=== PATIENT | male | born 1945 | race Caucasian/White ===

== ENCOUNTER 2020-01-06 22:19 | Inpatient (IN) | payer MEDICARE, OTHER ==
[~2020-01-06] VITALS: Ht 177.8 cm; Wt 108.7 kg
--- NOTE | 2020-01-06 22:27 | NUR ---
EKG DONE ON ARRIVAL BY ME.
--- NOTE | 2020-01-06 22:27 | NUR ---
Saúl blandon in [facility] - 01/06/20 at 2227 by [email or web address] EKG DONE ON ARRIVAL BY
[2020-01-06] MEDS ORDERED: HEPARIN 25,000 UNITS/250ML PMX 250 ML ONE (22:56)
[2020-01-06] MEDS ORDERED: HEPARIN 25,000 UNITS/250ML PMX 250 ML IV PRN (23:00)
[2020-01-06 23:18] LABS: TROPONIN I 0.246 ng/mL (0.000-0.045)
[2020-01-06] MEDS ORDERED: TEMAZEPAM 15 MG CAPSULE PO PRN (23:30)
[2020-01-06] MEDS ORDERED: DOCUSATE 100 MG CAPSULE PO PRN (23:30)
[2020-01-06] MEDS ORDERED: morphine SULFATE 10 MG/ML, 1ML IVPush PRN (23:30)
[2020-01-06] MEDS ORDERED: ENALAPRILAT 1.25 MG/ML, 2ML IVPush PRN (23:30)
[2020-01-06] MEDS ORDERED: NITROGLYCERIN 0.4 MG BOTTLE (25 TABS) SL PRN (23:30)
[2020-01-06] MEDS ORDERED: ACETAMINOPHEN 325 MG TABLET PO PRN (23:30)
[2020-01-06] MEDS ORDERED: LIDODERM 5% PATCH TD PRN (23:30)
[2020-01-06] MEDS ORDERED: PLEASE ENTER ALLERGIES MC SCH (23:45)
[2020-01-06 23:46] VITALS: BP 148/82
[2020-01-07] MEDS ORDERED: CYCL-259 PO (00:01)
[2020-01-07] MEDS ORDERED: CHOL10003 PO (00:01)
[2020-01-07] MEDS ORDERED: albuterol (00:01)
[2020-01-07] MEDS ORDERED: OMEP-110 PO (00:01)
[2020-01-07] MEDS ORDERED: FURO20TA3 PO (00:01)
[2020-01-07] MEDS ORDERED: LISI40TA PO (00:01)
[2020-01-07] MEDS ORDERED: MOME220A9 IH (00:01)
[2020-01-07] MEDS ORDERED: vitamin B12 (00:01)
[2020-01-07] MEDS ORDERED: DOXA4TAB3 PO (00:01)
[2020-01-07] MEDS ORDERED: ATOR-2 PO (00:01)
[2020-01-07] MEDS ORDERED: HEPARIN 5,000 UNITS/ML, 1ML IV PRN (00:30)
[2020-01-07 02:03] VITALS: BP 148/82
[2020-01-07 05:36] LABS: BASOPHILS # (AUTO) 0.02 x10^3/uL (0-0.1); BASOPHILS % (AUTO) 0 % (0-1); EOSINOPHILS # (AUTO) 0.06 x10^3/uL (0-0.4); EOSINOPHILS % (AUTO) 1 % (1-7); LYMPHOCYTES # (AUTO) 1.47 x10^3/uL (1-3.4); LYMPHOCYTES % (AUTO) 24 % (22-44); MD NO; MEAN CORPUSCULAR HEMOGLOBIN 29.7 pg (27.5-34.5); MEAN CORPUSCULAR HGB CONC 33.2 g/dL (33.2-36.2); MEAN CORPUSCULAR VOLUME 89.5 fL (81-97); MEAN PLATELET VOLUME 7.6 fL (7.4-10.4); MONOCYTES # (AUTO) 0.48 x10^3/uL (0.2-0.8); MONOCYTES % (AUTO) 8 % (2-9); NEUTROPHILS # (AUTO) 4.04 x10^3/uL (1.8-6.8); NEUTROPHILS % (AUTO) 67 % (42-75); PLATELET COUNT 207 x10^3/uL (130-400); RED BLOOD COUNT 4.17 x10^6/uL (4.38-5.82); RED CELL DISTRIBUTION WIDTH 14.5 % (9.4-14.8)
[2020-01-07 05:49] LABS: CHOL/HDL RATIO 3.3; CHOLESTEROL, TOTAL 106 mg/dL (140-239); HDL CHOL % 30 % (26-37); HDL CHOLESTEROL (DIRECT) 32 mg/dL (40-60); LDL CHOLESTEROL,CALCULATED 53 mg/dL (54-169); LDL/HDL RATIO 1.7 (0.5-3.0); TRIGLYCERIDES 103 mg/dL (50-200); VLDL CHOLESTEROL 21 mg/dL (0-25)
[2020-01-07] MEDS ORDERED: ASPIRIN 81 MG TABLET EC PO SCH (06:00)
[2020-01-07 07:15] VITALS: BP 124/81
[2020-01-07 07:49] LABS: TROPONIN I 0.859 ng/mL (0.000-0.045)
[2020-01-07 08:21] LABS: ANION GAP 8 mmol/L (5-15); CALCIUM 8.6 mg/dL (8.5-10.1); CHLORIDE 108 mmol/L (98-107); CREATININE 0.89 mg/dL (0.7-1.3)
[2020-01-07] MEDS ORDERED: MIDAZOLAM 1 MG/ML, 2ML ONE (10:13)
[2020-01-07] MEDS ORDERED: VERAPAMIL 2.5 MG/ML, 2ML ONE (10:14)
[2020-01-07] MEDS ORDERED: FENTANYL PF 100 MCG/2ML ONE (10:14)
[2020-01-07] MEDS ORDERED: BIVALIRUDIN 250 MG ONE ×3 (10:14→11:14)
[2020-01-07] MEDS ORDERED: LIDOCAINE-MPF 1%, 5ML ONE (10:15)
[2020-01-07] MEDS ORDERED: ASPIRIN 325 MG TABLET EC ONE (11:10)
[2020-01-07] MEDS ORDERED: TICAGRELOR 90 MG TABLET ONE (11:10)
[2020-01-07] MEDS: SODIUM CHLORIDE 0.9% 1,000 ML IV SCH ×2 (11:46→19:48)
[2020-01-07 14:48] VITALS: BP 151/86
[2020-01-07 15:36] VITALS: BP 177/78
[2020-01-07] MEDS ORDERED: ENALAPRILAT 1.25 MG/ML, 1ML ONE (17:03)
[2020-01-07] MEDS: ONDANSETRON ODT 4 MG PO PRN ×2 (17:06→21:27)
[2020-01-07 17:09] VITALS: BP 168/83
[2020-01-07 20:15] VITALS: BP 163/88
[2020-01-07] MEDS: MOMETASONE FUROATE 200 MCG HOMEINH SCH (21:25)
[2020-01-07] MEDS: TICAGRELOR 90 MG TABLET PO SCH (21:26)
[2020-01-07] MEDS: ATORVASTATIN 80 MG TABLET PO SCH (21:27)
[2020-01-08 01:07] VITALS: BP 150/84
[2020-01-08] MEDS: SODIUM CHLORIDE 0.9% 1,000 ML IV SCH ×3 (01:07→20:27)
[2020-01-08 05:46] LABS: BASOPHILS # (AUTO) 0.02 x10^3/uL (0-0.1); BASOPHILS % (AUTO) 0 % (0-1); EOSINOPHILS # (AUTO) 0.01 x10^3/uL (0-0.4); EOSINOPHILS % (AUTO) 0 % (1-7); LYMPHOCYTES % (AUTO) 9 % (22-44); MD NO; MEAN CORPUSCULAR HEMOGLOBIN 29.9 pg (27.5-34.5); MEAN CORPUSCULAR HGB CONC 33.3 g/dL (33.2-36.2); MEAN CORPUSCULAR VOLUME 89.8 fL (81-97); MEAN PLATELET VOLUME 7.6 fL (7.4-10.4); MONOCYTES # (AUTO) 0.66 x10^3/uL (0.2-0.8); MONOCYTES % (AUTO) 7 % (2-9); NEUTROPHILS # (AUTO) 7.78 x10^3/uL (1.8-6.8); NEUTROPHILS % (AUTO) 84 % (42-75); PLATELET COUNT 207 x10^3/uL (130-400); RED BLOOD COUNT 4.31 x10^6/uL (4.38-5.82); RED CELL DISTRIBUTION WIDTH 14.8 % (9.4-14.8)
[2020-01-08 06:37] LABS: ANION GAP 9 mmol/L (5-15); CALCIUM 8.8 mg/dL (8.5-10.1); CHLORIDE 111 mmol/L (98-107); CREATININE 2.01 mg/dL (0.7-1.3)
[2020-01-08 06:49] VITALS: BP 170/89
[2020-01-08] MEDS ORDERED: SODIUM CHLORIDE 0.9% 1,000 ML IV SCH (08:30)
[2020-01-08] MEDS ORDERED: LISINOPRIL 40 MG TABLET PO SCH (09:00)
[2020-01-08] MEDS: MOMETASONE FUROATE 200 MCG HOMEINH SCH ×2 (10:05→20:28)
[2020-01-08] MEDS: OMEPRAZOLE 20 MG CAPSULE.DR PO SCH (10:08)
[2020-01-08] MEDS: TICAGRELOR 90 MG TABLET PO SCH ×2 (10:08→20:28)
[2020-01-08] MEDS: ASPIRIN 81 MG TABLET EC PO SCH (10:08)
[2020-01-08] MEDS: DOXAZOSIN 2MG TABLET PO SCH ×2 (10:09→20:28)
[2020-01-08] MEDS: METOPROLOL TARTRATE 25 MG TAB PO SCH ×2 (10:09→18:22)
[2020-01-08] MEDS ORDERED: ENALAPRILAT 1.25 MG/ML, 1ML ONE (11:06)
[2020-01-08 11:10] VITALS: BP 154/54
[2020-01-08] MEDS: ONDANSETRON ODT 4 MG PO PRN (11:11)
[2020-01-08 13:29] VITALS: BP 154/85
[2020-01-08 18:37] VITALS: BP 150/88
[2020-01-08] MEDS: ATORVASTATIN 80 MG TABLET PO SCH (20:28)
[2020-01-09 01:17] VITALS: BP 137/71
[2020-01-09] MEDS: SODIUM CHLORIDE 0.9% 1,000 ML IV SCH (04:30)
[2020-01-09 04:59] LABS: ANION GAP 5 mmol/L (5-15); CALCIUM 8.2 mg/dL (8.5-10.1); CHLORIDE 112 mmol/L (98-107); CREATININE 4.79 mg/dL (0.7-1.3)
[2020-01-09 05:27] VITALS: BP 158/70
[2020-01-09] MEDS: ASPIRIN 81 MG TABLET EC PO SCH (05:31)
[2020-01-09] MEDS: METOPROLOL TARTRATE 25 MG TAB PO SCH ×2 (05:31→18:11)
[2020-01-09] MEDS: OMEPRAZOLE 20 MG CAPSULE.DR PO SCH (05:31)
[2020-01-09] MEDS ORDERED: DOXA4TAB2 PO (06:51)
[2020-01-09 07:00] VITALS: BP 135/75
[2020-01-09] MEDS: MOMETASONE FUROATE 200 MCG HOMEINH SCH ×2 (08:00→21:00)
[2020-01-09] MEDS: TICAGRELOR 90 MG TABLET PO SCH ×2 (08:11→20:53)
[2020-01-09 13:30] VITALS: BP 137/77
[2020-01-09 18:10] VITALS: BP 189/89
[2020-01-09 18:47] VITALS: BP 160/80
[2020-01-09] MEDS: ATORVASTATIN 80 MG TABLET PO SCH (20:53)
[2020-01-09] MEDS: DOXAZOSIN 2MG TABLET PO SCH (20:54)
[2020-01-10 00:24] VITALS: BP 119/69
[2020-01-10 04:51] LABS: BASOPHILS # (AUTO) 0.03 x10^3/uL (0-0.1); BASOPHILS % (AUTO) 0 % (0-1); EOSINOPHILS # (AUTO) 0.31 x10^3/uL (0-0.4); EOSINOPHILS % (AUTO) 5 % (1-7); LYMPHOCYTES # (AUTO) 1.41 x10^3/uL (1-3.4); LYMPHOCYTES % (AUTO) 21 % (22-44); MD NO; MEAN CORPUSCULAR HEMOGLOBIN 29.5 pg (27.5-34.5); MEAN CORPUSCULAR HGB CONC 32.9 g/dL (33.2-36.2); MEAN CORPUSCULAR VOLUME 89.7 fL (81-97); MEAN PLATELET VOLUME 7.7 fL (7.4-10.4); MONOCYTES # (AUTO) 0.71 x10^3/uL (0.2-0.8); MONOCYTES % (AUTO) 10 % (2-9); NEUTROPHILS # (AUTO) 4.39 x10^3/uL (1.8-6.8); NEUTROPHILS % (AUTO) 64 % (42-75); PLATELET COUNT 189 x10^3/uL (130-400); RED BLOOD COUNT 3.86 x10^6/uL (4.38-5.82); RED CELL DISTRIBUTION WIDTH 15.1 % (9.4-14.8)
[2020-01-10 05:00] LABS: CHLORIDE 111 mmol/L (98-107)
[2020-01-10 05:06] LABS: ANION GAP 7 mmol/L (5-15); CALCIUM 8.5 mg/dL (8.5-10.1); CREATININE 1.41 mg/dL (0.7-1.3)
[2020-01-10 05:27] VITALS: BP 136/80
[2020-01-10] MEDS: METOPROLOL TARTRATE 25 MG TAB PO SCH (05:29)
[2020-01-10] MEDS: OMEPRAZOLE 20 MG CAPSULE.DR PO SCH (05:30)
[2020-01-10] MEDS: ASPIRIN 81 MG TABLET EC PO SCH (05:30)
[2020-01-10 06:55] VITALS: BP 130/62
[2020-01-10] MEDS: MOMETASONE FUROATE 200 MCG HOMEINH SCH (08:12)
[2020-01-10] MEDS: TICAGRELOR 90 MG TABLET PO SCH (08:12)
[2020-01-10] MEDS ORDERED: TICA90TA PO (10:04)
[2020-01-10] MEDS ORDERED: ASPI81TA45 PO (10:04)
[2020-01-10] MEDS ORDERED: NITR0.4T28 SL (10:04)
[2020-01-10] MEDS ORDERED: METO25TA35 PO (10:04)
== END 2020-01-10 14:40 | disposition home or self-care (01) | DRG 246 ==
LOC: ED 22:40 → EDIP 23:47 → 5SO 23:51
PROVIDERS: ADMIT Family Medicine; ATTEND Family Medicine
PROC: 027034Z Dilation of Coronary Artery, One Artery with Drug-eluting Intraluminal Device, Percutaneous Approach (ICD-10-PCS; principal; 2020-01-07)
PROC: 4A023N7 Measurement of Cardiac Sampling and Pressure, Left Heart, Percutaneous Approach (ICD-10-PCS; 2020-01-07)
PROC: B211YZZ Fluoroscopy of Multiple Coronary Arteries using Other Contrast (ICD-10-PCS; 2020-01-07)
PROC: B215YZZ Fluoroscopy of Left Heart using Other Contrast (ICD-10-PCS; 2020-01-07)
DX: I21.4 Non-ST elevation (NSTEMI) myocardial infarction (principal); N17.0 Acute kidney failure with tubular necrosis; N13.8 Other obstructive and reflux uropathy; Z88.6 Allergy status to analgesic agent; E78.5 Hyperlipidemia, unspecified; F12.20 Cannabis dependence, uncomplicated; I12.9 Hypertensive chronic kidney disease with stage 1 through stage 4 chronic kidney disease, or unspecified chronic kidney disease; I25.10 Atherosclerotic heart disease of native coronary artery without angina pectoris; J44.9 Chronic obstructive pulmonary disease, unspecified; K21.9 Gastro-esophageal reflux disease without esophagitis; N18.9 Chronic kidney disease, unspecified; N40.1 Benign prostatic hyperplasia with lower urinary tract symptoms; Z82.49 Family history of ischemic heart disease and other diseases of the circulatory system; Z87.891 Personal history of nicotine dependence; Z79.82 Long term (current) use of aspirin; Z79.899 Other long term (current) drug therapy
CPT/HCPCS: 36415; 71045; 76770; 80048; 80061; 83036; 84484; 85025; 85520; 93005; 93306; 93356; 93458; 96374; 99156; C1769; C1894; C9600; G0378; J0583; J1644; J2250; J3010; Q0162; C1725; C1874; C1887; J7030; Q9967

== ENCOUNTER 2020-05-01 14:19 | Inpatient (IN) | payer MEDICARE, MEDICAID ==
[~2020-05-01] VITALS: Ht 177.8 cm; Wt 104.7 kg
[~2020-05-01 14:19] MED LIST: ASPI81TA45 PO; ATOR-2 PO; CHOL10003 PO; CYCL-259 PO; DOXA4TAB2 PO; DOXA4TAB3 PO; FURO20TA3 PO; LISI40TA PO; METO25TA35 PO; MOME220A9 IH; NITR0.4T28 SL; OMEP-110 PO; TICA90TA PO; albuterol; vitamin B12
--- NOTE | 2020-05-01 14:30 | NUR ---
PT BIB [facility] FROM [facility] FOR NONSTEMI. PER EMS, PT C/O WEAKNESS, SOB ON EXERTION AND CONSTIPATION X2 DAYS AT HOME. PT WAS FOUND TO HAVE ELEVATED TROPONIN 2.4. PT WAS ALSO FOUND TO HAVE URINARY RETENTION (HAD INDWELLING CATHETER SINCE HIS CARDIAC STENT WAS PLACED IN JANUARY) AND SO ARGUETA CATH WAS INSERTED AGAIN. UPON ARRIVAL TO ED, PT A&OX4, REPORTS FEELING WEAK, DENIES CHEST PAIN. HEPARIN GTT INFUSING UPON ARRIVAL; HELD UNTIL ER ORDER IN PLACE. VSS. ALL MONITORS IN PLACE.
[2020-05-01] MEDS ORDERED: HEPARIN 25,000 UNITS/250ML PMX 250 ML ONE (14:56)
[2020-05-01] MEDS ORDERED: CEFTRIAXONE PMX 1GM/50ML 50 ML IV ONE (15:30)
[2020-05-01] MEDS ORDERED: CEFTRIAXONE PMX 1GM/50ML 50 ML ONE (15:50)
[2020-05-01] MEDS: HEPARIN 25,000 UNITS/250ML PMX 250 ML IV PRN (15:59)
[2020-05-01] MEDS ORDERED: HEPARIN 5,000 UNITS/ML, 1ML ONE (16:00)
[2020-05-01] MEDS ORDERED: HEPARIN 5,000 UNITS/ML, 1ML IV ONE (16:00)
--- NOTE | 2020-05-01 16:18 | NUR ---
HEPARIN GTT INFUSING PER ORDERS. 2ND IV STARTED AND ROCEPHIN INFUSING.
[2020-05-01] MEDS ORDERED: ALLO300T PO (17:01)
[2020-05-01] MEDS ORDERED: FINA5TAB4 PO (17:06)
[2020-05-01] MEDS ORDERED: CYAN-27 PO (17:06)
[2020-05-01] MEDS ORDERED: TICA90TA PO (17:06)
[2020-05-01] MEDS ORDERED: ROSU40TA PO (17:06)
[2020-05-01] MEDS ORDERED: FURO40TA6 PO (17:06)
[2020-05-01] MEDS ORDERED: DOXA8TAB63 PO (17:06)
[2020-05-01 17:33] VITALS: BP 150/76
[2020-05-01] MEDS ORDERED: SODIUM CHLORIDE 0.9% 1,000 ML IV SCH (17:54)
[2020-05-01] MEDS ORDERED: LABETALOL 5MG/ML, 20ML IVPush PRN (18:00)
[2020-05-01] MEDS ORDERED: BISACODYL 10 MG SUPP PR PRN (18:00)
[2020-05-01] MEDS ORDERED: ONDANSETRON ODT 4 MG PO PRN (18:00)
[2020-05-01] MEDS ORDERED: TEMAZEPAM 15 MG CAPSULE PO PRN (18:00)
[2020-05-01] MEDS ORDERED: POLYETHYLENE GLYCOL 17 GM PACKET PO PRN (18:00)
[2020-05-01] MEDS ORDERED: morphine SULFATE 10 MG/ML, 1ML IVPush PRN (18:00)
[2020-05-01] MEDS ORDERED: ACETAMINOPHEN 325 MG TABLET PO PRN (18:00)
[2020-05-01] MEDS ORDERED: NITROGLYCERIN SINGLE TAB 0.4 MG SL PRN (18:30)
[2020-05-01] MEDS ORDERED: ALBU90AE2 INH (18:32)
[2020-05-01] MEDS: METOPROLOL TARTRATE 25 MG TAB PO SCH (19:15)
[2020-05-01 20:12] VITALS: BP 132/79
[2020-05-01] MEDS: MOMETASONE FUROATE 200 MCG INH SCH (21:00)
[2020-05-01] MEDS: TICAGRELOR 90 MG TABLET PO SCH (21:30)
[2020-05-01] MEDS: ATORVASTATIN 80 MG TABLET PO SCH (21:30)
[2020-05-02 03:53] VITALS: BP 118/77
[2020-05-02 05:21] LABS: BASOPHILS # (AUTO) 0.05 x10^3/uL (0-0.1); BASOPHILS % (AUTO) 1 % (0-1); EOSINOPHILS # (AUTO) 0.12 x10^3/uL (0-0.4); EOSINOPHILS % (AUTO) 2 % (1-7); LYMPHOCYTES # (AUTO) 1.79 x10^3/uL (1-3.4); LYMPHOCYTES % (AUTO) 25 % (22-44); MD NO; MEAN CORPUSCULAR HEMOGLOBIN 28.4 pg (27.5-34.5); MEAN CORPUSCULAR HGB CONC 32.7 g/dL (33.2-36.2); MEAN CORPUSCULAR VOLUME 86.8 fL (81-97); MEAN PLATELET VOLUME 7.4 fL (7.4-10.4); MONOCYTES % (AUTO) 10 % (2-9); NEUTROPHILS # (AUTO) 4.57 x10^3/uL (1.8-6.8); NEUTROPHILS % (AUTO) 63 % (42-75); PLATELET COUNT 182 x10^3/uL (130-400); RED CELL DISTRIBUTION WIDTH 14.9 % (9.4-14.8)
[2020-05-02 05:34] LABS: CHLORIDE 113 mmol/L (98-107)
[2020-05-02 05:41] LABS: ALANINE AMINOTRANSFERASE 11 U/L (12-78); ALBUMIN 2.8 g/dL (3.4-5.0); ALKALINE PHOSPHATASE 90 U/L (45-117); ANION GAP 9 mmol/L (5-15); CALCIUM 8.6 mg/dL (8.5-10.1); CHOLESTEROL, TOTAL 94 mg/dL (140-239); CREATININE 0.91 mg/dL (0.7-1.3); HDL CHOL % 33 % (26-37); HDL CHOLESTEROL (DIRECT) 31 mg/dL (40-60); LDL CHOLESTEROL,CALCULATED 37 mg/dL (54-169); LDL/HDL RATIO 1.2 (0.5-3.0); TOTAL PROTEIN 5.8 g/dL (6.4-8.2); TRIGLYCERIDES 129 mg/dL (50-200); VLDL CHOLESTEROL 26 mg/dL (0-25)
[2020-05-02 05:46] LABS: BILIRUBIN,TOTAL 0.5 mg/dL (0.2-1.0)
[2020-05-02] MEDS: HEPARIN 5,000 UNITS/ML, 1ML IV PRN ×2 (05:58→20:07)
[2020-05-02] MEDS ORDERED: ASPIRIN 325 MG TABLET EC PO SCH (06:00)
[2020-05-02 07:10] VITALS: BP 129/81
[2020-05-02] MEDS: PANTOPRAZOLE 40MG TABLET PO SCH (08:04)
[2020-05-02] MEDS: CEFTRIAXONE PMX 2GM/50ML 50 ML IV SCH (08:07)
[2020-05-02] MEDS: METOPROLOL TARTRATE 25 MG TAB PO SCH ×2 (09:00→16:48)
[2020-05-02] MEDS: MOMETASONE FUROATE 200 MCG INH SCH ×2 (09:00→20:08)
[2020-05-02] MEDS ORDERED: SODIUM CHLORIDE 0.9% 1,000 ML IV SCH (10:36)
[2020-05-02] MEDS: ALLOPURINOL 300 MG TABLET PO SCH (11:57)
[2020-05-02] MEDS: TICAGRELOR 90 MG TABLET PO SCH ×2 (11:57→20:07)
[2020-05-02] MEDS: SENNA/DOCUSATE TABLET PO SCH (11:58)
[2020-05-02] MEDS: CHOLECALCIFEROL 1,000 UNIT TABLET PO SCH (11:58)
[2020-05-02] MEDS: DOXAZOSIN 2MG TABLET PO SCH (11:58)
[2020-05-02] MEDS: CYANOCOBALAMIN 1,000 MCG TABLET PO SCH (11:59)
[2020-05-02 13:06] VITALS: BP 131/74
[2020-05-02] MEDS: HEPARIN 25,000 UNITS/250ML PMX 250 ML IV PRN (16:47)
[2020-05-02 19:58] VITALS: BP 143/81
[2020-05-02] MEDS: ATORVASTATIN 80 MG TABLET PO SCH (20:07)
[2020-05-02 22:46] VITALS: BP 168/89
[2020-05-02] MEDS: ONDANSETRON 2MG/ML, 2ML IVPush PRN (22:57)
[2020-05-03] VITALS (7 sets, daily range): BP systolic 127–203; BP diastolic 72–96
[2020-05-03 02:26] LABS: BASOPHILS # (AUTO) 0.07 x10^3/uL (0-0.1); BASOPHILS % (AUTO) 1 % (0-1); EOSINOPHILS # (AUTO) 0.05 x10^3/uL (0-0.4); EOSINOPHILS % (AUTO) 1 % (1-7); LYMPHOCYTES # (AUTO) 1.44 x10^3/uL (1-3.4); LYMPHOCYTES % (AUTO) 15 % (22-44); MD NO; MEAN CORPUSCULAR HEMOGLOBIN 28.3 pg (27.5-34.5); MEAN CORPUSCULAR HGB CONC 32.7 g/dL (33.2-36.2); MEAN CORPUSCULAR VOLUME 86.7 fL (81-97); MEAN PLATELET VOLUME 7.4 fL (7.4-10.4); MONOCYTES # (AUTO) 0.59 x10^3/uL (0.2-0.8); MONOCYTES % (AUTO) 6 % (2-9); NEUTROPHILS # (AUTO) 7.38 x10^3/uL (1.8-6.8); NEUTROPHILS % (AUTO) 77 % (42-75); PLATELET COUNT 187 x10^3/uL (130-400); RED BLOOD COUNT 4.46 x10^6/uL (4.38-5.82); RED CELL DISTRIBUTION WIDTH 14.4 % (9.4-14.8)
[2020-05-03] MEDS ORDERED: hydrALAzine 20 MG/ML, 1ML IV PRN (02:30)
[2020-05-03] MEDS ORDERED: PROMETHAZINE 25 MG/ML, 1ML IM PRN (02:30)
[2020-05-03] MEDS: METOPROLOL TARTRATE 25 MG TAB PO SCH ×2 (06:00→08:06)
[2020-05-03] MEDS: ASPIRIN 81 MG TABLET EC PO SCH ×2 (06:00→08:05)
[2020-05-03 07:22] LABS: ANION GAP 9 mmol/L (5-15); CALCIUM 8.4 mg/dL (8.5-10.1); CHLORIDE 107 mmol/L (98-107); CREATININE 0.84 mg/dL (0.7-1.3)
[2020-05-03] MEDS: CEFTRIAXONE PMX 2GM/50ML 50 ML IV SCH (08:05)
[2020-05-03] MEDS: FINASTERIDE 5 MG TABLET PO SCH (08:05)
[2020-05-03] MEDS: DOXAZOSIN 2MG TABLET PO SCH (08:05)
[2020-05-03] MEDS: AMLODIPINE 10 MG TAB PO SCH (08:06)
[2020-05-03] MEDS: PANTOPRAZOLE 40MG TABLET PO SCH (08:06)
[2020-05-03] MEDS: TICAGRELOR 90 MG TABLET PO SCH ×3 (08:06→21:29)
[2020-05-03] MEDS: SENNA/DOCUSATE TABLET PO SCH (08:07)
[2020-05-03] MEDS: CYANOCOBALAMIN 1,000 MCG TABLET PO SCH (08:07)
[2020-05-03] MEDS: CHOLECALCIFEROL 1,000 UNIT TABLET PO SCH (08:07)
[2020-05-03] MEDS: ALLOPURINOL 300 MG TABLET PO SCH (08:07)
[2020-05-03] MEDS: MOMETASONE FUROATE 200 MCG INH SCH ×2 (08:07→16:25)
[2020-05-03] MEDS ORDERED: SODIUM CHLORIDE 0.9% 1,000 ML IV SCH ×2 (10:00→15:12)
[2020-05-03] MEDS ORDERED: TICAGRELOR 90 MG TABLET ONE (13:58)
[2020-05-03] MEDS ORDERED: HEPARIN 1,000 UNITS/ML, 10ML ONE (13:58)
[2020-05-03] MEDS ORDERED: MIDAZOLAM 1 MG/ML, 5ML ONE (13:58)
[2020-05-03] MEDS ORDERED: BIVALIRUDIN 250 MG ONE (13:58)
[2020-05-03] MEDS ORDERED: LIDOCAINE-MPF 1%, 5ML ONE (13:58)
[2020-05-03] MEDS ORDERED: VERAPAMIL 2.5 MG/ML, 2ML ONE (13:58)
[2020-05-03] MEDS ORDERED: FENTANYL PF 100 MCG/2ML ONE (13:58)
[2020-05-03] MEDS ORDERED: TICAGRELOR 90 MG TABLET PO SCH (21:00)
[2020-05-03] MEDS: ATORVASTATIN 80 MG TABLET PO SCH (21:29)
[2020-05-04 00:26] VITALS: BP 144/79
[2020-05-04 05:23] LABS: ANION GAP 6 mmol/L (5-15); CALCIUM 8.6 mg/dL (8.5-10.1); CHLORIDE 108 mmol/L (98-107)
[2020-05-04 05:24] LABS: CREATININE 0.72 mg/dL (0.7-1.3)
[2020-05-04] MEDS: ASPIRIN 81 MG TABLET EC PO SCH (05:36)
[2020-05-04] MEDS: METOPROLOL TARTRATE 25 MG TAB PO SCH (05:36)
[2020-05-04 05:38] VITALS: BP 136/84
[2020-05-04 07:02] VITALS: BP 139/84
[2020-05-04] MEDS: ONDANSETRON 2MG/ML, 2ML IVPush PRN (08:35)
[2020-05-04] MEDS: FINASTERIDE 5 MG TABLET PO SCH (08:45)
[2020-05-04] MEDS: SENNA/DOCUSATE TABLET PO SCH (08:45)
[2020-05-04] MEDS: CYANOCOBALAMIN 1,000 MCG TABLET PO SCH (08:46)
[2020-05-04] MEDS: TICAGRELOR 90 MG TABLET PO SCH (08:47)
[2020-05-04] MEDS: ALLOPURINOL 300 MG TABLET PO SCH (08:47)
[2020-05-04] MEDS: AMLODIPINE 10 MG TAB PO SCH (08:47)
[2020-05-04] MEDS: PANTOPRAZOLE 40MG TABLET PO SCH (08:47)
[2020-05-04] MEDS: CHOLECALCIFEROL 1,000 UNIT TABLET PO SCH (08:48)
[2020-05-04] MEDS: CEFTRIAXONE PMX 2GM/50ML 50 ML IV SCH (08:48)
[2020-05-04] MEDS ORDERED: TAMSULOSIN 0.4 MG CAP.ER.24H PO SCH (09:00)
[2020-05-04] MEDS ORDERED: ASPIRIN 81 MG TABLET EC PO SCH (09:00)
[2020-05-04] MEDS: MOMETASONE FUROATE 200 MCG INH SCH (09:25)
[2020-05-04] MEDS ORDERED: TAMS-11 PO (11:04)
[2020-05-04] MEDS ORDERED: AMLO10TA8 PO (11:04)
== END 2020-05-04 13:30 | disposition home health service (06) | DRG 246 ==
LOC: ED 15:41 → EDIP 15:56 → 5SO 17:21 → DCLOUNGE 05-04 13:20
PROVIDERS: ADMIT Internal Medicine; ATTEND Hospitalist
PROC: 027034Z Dilation of Coronary Artery, One Artery with Drug-eluting Intraluminal Device, Percutaneous Approach (ICD-10-PCS; principal; 2020-05-03)
PROC: 4A023N7 Measurement of Cardiac Sampling and Pressure, Left Heart, Percutaneous Approach (ICD-10-PCS; 2020-05-03)
PROC: B211YZZ Fluoroscopy of Multiple Coronary Arteries using Other Contrast (ICD-10-PCS; 2020-05-03)
PROC: 4A033BC Measurement of Arterial Pressure, Coronary, Percutaneous Approach (ICD-10-PCS; 2020-05-03)
DX: I21.4 Non-ST elevation (NSTEMI) myocardial infarction (principal); N17.0 Acute kidney failure with tubular necrosis; N13.8 Other obstructive and reflux uropathy; N39.0 Urinary tract infection, site not specified; I10 Essential (primary) hypertension; E78.5 Hyperlipidemia, unspecified; J44.9 Chronic obstructive pulmonary disease, unspecified; F17.210 Nicotine dependence, cigarettes, uncomplicated; M10.9 Gout, unspecified; K21.9 Gastro-esophageal reflux disease without esophagitis; N40.1 Benign prostatic hyperplasia with lower urinary tract symptoms; I25.10 Atherosclerotic heart disease of native coronary artery without angina pectoris; R33.8 Other retention of urine; R73.03 Prediabetes; F12.90 Cannabis use, unspecified, uncomplicated; I25.2 Old myocardial infarction; Z82.49 Family history of ischemic heart disease and other diseases of the circulatory system; Z82.5 Family history of asthma and other chronic lower respiratory diseases
CPT/HCPCS: 36415; 71046; 80048; 80053; 80061; 82962; 83605; 83735; 84443; 84484; 85014; 85018; 85025; 85520; 87040; 93005; 93306; 93454; 93571; 96365; 96375; 99156; 99157; C1769; C1894; C9600; G0378; J0583; J0696; J1644; J2250; J2405; J2550; J3010; C1725; C1874; C1887; J0360; J7030; Q9967